=== PATIENT | female | born 1965 ===

== ENCOUNTER 2017-10-21 10:49 | Emergency (ER) | payer BC ==
[2017-10-21 10:56] VITALS: RESP 18; TEMP 98.1; O2SAT 97
--- NOTE | 2017-10-21 13:20 | CT ---
PROCEDURE: CT Abdomen and Pelvis without intravenous contrast HISTORY: left flank pain COMPARISON: None. TECHNIQUE: CT scan of the abdomen and pelvis was performed without administration of intravenous contrast. Oral contrast was not administered. Coronal and sagittal reformatted images were obtained Radiation dose: Total exam DLP = 1197.74 mGy-cm. This CT exam was performed using one or more of the following dose reduction techniques: Automated exposure control, adjustment of the mA and/or kV according to patient size, and/or use of iterative reconstruction technique. FINDINGS: LOWER THORAX: There is linear atelectasis/ scarring in the right middle lobe, lingula and left lung base. LIVER: The liver is normal in size. No gross lesion or ductal dilatation. GALLBLADDER AND BILE DUCTS: No calcified gallstones. PANCREAS: Normal in size. No gross lesion or ductal dilatation. SPLEEN: Normal in size. ADRENALS: No discrete nodule. KIDNEYS AND URETERS: The kidneys are normal in size, left larger than right. No hydronephrosis or nephrolithiasis. VASCULATURE: The aorta is tortuous and there are atherosclerotic aortoiliac calcifications. No aortic aneurysm. BOWEL: The small bowel loops are normal in caliber. There is large amount of stool in the colon. No bowel dilatation or obstruction. APPENDIX: Normal appendix. PERITONEUM: No free fluid. No free air. LYMPH NODES: Unremarkable. No enlarged lymph nodes. BLADDER: Decompressed. REPRODUCTIVE: The uterus is normal in size. BONES: No acute fracture. Within normal limits for the patient's age. OTHER FINDINGS: There is a small sliding hiatal hernia. IMPRESSION: No evidence of nephrolithiasis, hydronephrosis or obstructive uropathy. Please note pyelonephritis cannot be excluded in the absence of intravenous contrast.
--- NOTE | 2017-10-21 13:23 | C.PDOC ---
History Of Present Illness 52-year-old female, presents to the emergency department with complaints of pain to left flank after mechanical fall three days ago. Patient notes she was changing the shower curtain in her bathroom, and slipped, causing her to fall and hit the tub. Pain is persistent, and worse with movement. Patient denies hematuria, change in appetite or difficulty breathing. Nothing taken for pain at home today. Time Seen by Provider: 10/21/17 11:11 Chief Complaint (Nursing): Hip Pain History Per: Patient History/Exam Limitations: no limitations Onset/Duration Of Symptoms: Days Current Symptoms Are (Timing): Still Present Severity: Moderate Past Medical History Reviewed: Historical Data, Nursing Documentation, Vital Signs Vital Signs: Last Vital Signs Temp 98.1 F 10/21/17 13:28 Pulse 58 L 10/21/17 13:28 Resp 18 10/21/17 13:28 BP 120/76 10/21/17 13:28 Pulse Ox 97 10/21/17 13:40 - Medical History PMH: HTN (not medicated, does not know regular BP) Family History: States: No Known Family Hx - Social History Hx Alcohol Use: Yes Hx Substance Use: No - Immunization History Hx Tetanus Toxoid Vaccination: Yes Hx Influenza Vaccination: No Hx Pneumococcal Vaccination: No Review Of Systems Constitutional: Negative for: Fever Cardiovascular: Negative for: Chest Pain Respiratory: Negative for: Cough, Shortness of Breath Gastrointestinal: Negative for: Vomiting, Abdominal Pain Genitourinary: Negative for: Hematuria Musculoskeletal: Positive for: Back Pain Neurological: Negative for: Weakness, Numbness, Headache, Dizziness Physical Exam - Physical Exam Appears: Non-toxic, No Acute Distress Skin: Warm, Dry, No Rash Head: Normacephalic Eye(s): bilateral: Normal Inspection, EOMI Nose: Normal Oral Mucosa: Moist Neck: Normal ROM, Supple Chest: Symmetrical, 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 : [id number]. Patient Name / ID : RADHIKA VELAZQUEZ / [id number]. Exam Date : 10/21/2017 12:27:18 ( Approved ). Study Comment : Sex / Age : F / 52Y. Creator : Emily Hall MD. Dictator : Emily Hall MD. Pin Pusher : Ground Host/Hostess : Emily Hall MD. Approver2 : Report Date : 10/21/2017 13:19:04. My Comment : . PROCEDURE: CT Abdomen and Pelvis without intravenous contrast. HISTORY: left flank pain. COMPARISON: None. TECHNIQUE: CT scan of the abdomen and pelvis was performed without administration of intravenous contrast. Oral contrast was not administered. Coronal and sagittal reformatted images were obtained. Radiation dose: Total exam DLP = 1197.74 mGy-cm. This CT exam was performed using one or more of the following dose reduction techniques: Automated exposure control, adjustment of the mA and/or kV according to patient size, and/ or use of iterative reconstruction technique. FINDINGS: LOWER THORAX: There is linear atelectasis/ scarring in the right middle lobe, lingula and left lung base. LIVER: The liver is normal in size. No gross lesion or ductal dilatation. GALLBLADDER AND BILE DUCTS: No calcified gallstones. PANCREAS: Normal in size. No gross lesion or ductal dilatation. SPLEEN: Normal in size. ADRENALS: No discrete nodule. KIDNEYS AND URETERS: The kidneys are normal in size, left larger than right. No hydronephrosis or nephrolithiasis. VASCULATURE: The aorta is tortuous and there are atherosclerotic aortoiliac calcifications. No aortic aneurysm. BOWEL: The small bowel loops are normal in caliber. There is large amount of stool in the colon. No bowel dilatation or obstruction. APPENDIX: Normal appendix. PERITONEUM: No free fluid. No free air. LYMPH NODES: Unremarkable. No enlarged lymph nodes. BLADDER: Decompressed. REPRODUCTIVE: The uterus is normal in size. BONES: No acute fracture. Within normal limits for the patient's age. OTHER FINDINGS: There is a small sliding hiatal hernia. IMPRESSION: No evidence of nephrolithiasis, hydronephrosis or obstructive uropathy. Please note pyelonephritis cannot be excluded in the absence of intravenous contrast. Progress Note: CT Abd/Pel, XR Ribs ordered and reviewed. Patient treated with Tramadol for pain. On re-evaluation, pain has improved. No chest pain. TOlerating PO. Pt was instructed RICE and follow up with PMD in 1-2 days. Disposition - Disposition Disposition: HOME/ ROUTINE Disposition Time: 13:30 Condition: STABLE Additional Instructions: Follow up with your primary medical doctor or clinic in 2-5 days for further evaluation. Take medications as prescribed. Return to the emergency department at any time if symptoms persist or worsen. Prescriptions: traMADol [Ultram] 50 mg PO Q8 #15 tab Instructions: Contusion (DC) Forms: [employer] ([place]ian), Work Excuse - Clinical Impression Clinical Impression: Back contusion - Scribe Statement The provider has reviewed the documentation as recorded by the Scribe (Kimmie Lara) All medical record entries made by the Scribe were at my direction and personally dictated by me. I have reviewed the chart and agree that the record accurately reflects my personal performance of the history, physical exam, medical decision making, and the department course for this patient. I have also personally directed, reviewed, and agree with the discharge instructions and disposition.
[2017-10-21 13:32] VITALS: BP 120/76; PULSE 58
--- NOTE | 2017-10-21 14:29 | RAD ---
PROCEDURE: Radiographs of the Chest and Left Ribs. HISTORY: trauma COMPARISON: None available. TECHNIQUE: Frontal radiograph of the chest and multiple oblique radiographs of the left ribs were obtained. FINDINGS: LEFT RIBS: No fracture or focal lesion visualized. LUNGS: Clear. PLEURA: No pneumothorax or pleural fluid. CARDIOVASCULAR: No radiographic findings to suggest acute or significant cardiovascular disease. OTHER FINDINGS: None. IMPRESSION: Unremarkable radiographs of the chest and left ribs. No left rib fracture.
== END 2017-10-21 14:22 | disposition home or self-care (01) ==
LOC: C.ER 10:49
DX: S30.0XXA Contusion of lower back and pelvis, initial encounter (principal); W01.198A Fall on same level from slipping, tripping and stumbling with subsequent striking against other object, initial encounter; Y93.89 Activity, other specified; Y92.89 Other specified places as the place of occurrence of the external cause